=== PATIENT | female | born 1995 | race Caucasian/White ===

== ENCOUNTER 2024-03-16 09:02 | Day surgery (SDC) | payer BC, SELFPAY ==
[2024-03-16 09:18] VITALS: BMI 41.2
[2024-03-16 09:30] VITALS: BP 119/72; PULSE 77; RESP 16; TEMP 36.6; O2SAT 94
[2024-03-16] MEDS: SODIUM CHLORIDE 0.9 % (FLUSH) 10 ML SYRINGE IVF (09:32)
[2024-03-16 09:36] LABS: Ur HCG Qualitative* Negative (Negative)
--- NOTE | 2024-03-16 10:30 | CRLHL7_ITS ---
For Patients: As a result of the Century Cures Act, medical imaging exams and procedure reports are released immediately into your electronic medical record. You may view this report before your referring provider. If you have questions, please contact your health care provider. Indication: Excision Lipoma Right Foot; IPJ Fusion Right big toe Technique: Two fluoroscopic images of the right great toe. Fluoroscopic time 12.3 seconds. IMPRESSION: Fluoroscopic guidance of fusion across the great toe interphalangeal joint. Dictated by Iggy Osman MD @ 03/16/2024 2:56:54 PM (Electronically Signed)
[2024-03-16] MEDS: BUPIVACAINE 0.25% 30 ML INJECTION (11:20)
[2024-03-16] MEDS: CEFAZOLIN 2 GM INJ IVP (11:26)
--- NOTE | 2024-03-16 12:33 | W.ANESCHARGE ---
Anesthesia Charges Start Date/Time Anesthesia Start Date: 03/16/24 Anesthesia Start Time: 11:11 Stop Date/Time Anesthesia Stop Date: 03/16/24 Anesthesia Stop Time: 13:31
[2024-03-16 13:30] VITALS: BP 113/70; PULSE 63; RESP 16; TEMP 36.7; O2SAT 100
--- NOTE | 2024-03-16 13:38 | W.ANESCHARGE ---
Anesthesia Charges Start Date/Time Anesthesia Start Date: 03/16/24 Anesthesia Start Time: 11:11 Stop Date/Time Anesthesia Stop Date: 03/16/24 Anesthesia Stop Time: 13:31
[2024-03-16 13:45] VITALS: BP 134/84; PULSE 59; RESP 16; O2SAT 99
[2024-03-16 14:00] VITALS: BP 140/96; PULSE 71; RESP 16; O2SAT 100
[2024-03-16] MEDS: OxyCODONE/APAP 5-325 TABLET PO (14:08)
[2024-03-16 14:15] VITALS: BP 124/73; PULSE 71; RESP 16; O2SAT 100
[2024-03-16 14:45] VITALS: BP 128/78; PULSE 75; RESP 16; O2SAT 100
--- NOTE | 2024-03-16 15:56 | W.PODPROC_ITS ---
Date of Procedure: 03/16/24 Surgeon: Edward Jackson DPM Pre-op Diagnosis: 1. Lipoma left foot 2. Lipoma right foot 3. Rheumatoid nodule right great toe 4. Hallux extensus right 5. 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 Lipoma left foot 2. Lipoma right foot 3. Rheumatoid nodule right great toe 4. Hallux extensus right 5. 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 Excision of lipoma left foot 2. Excision of lipoma right foot 3. Excision of rheumatoid nodule right great toe 4. IPJ fusion right great toe 5. Ostectomy 5th metatarsal head right Indications: Patient has had ongoing issues with mass formations and great toe pain. She had previous surgery on the right foot and now has continued pain in the area of the cyst were there is a a moderate condyle. She has elected to have surgical treatment. I reviewed the procedure, recovery, expectations and potential comp lications. These include but not limited to: Poor wound healing, infection, under correction, over correction, nonunion, malunion, delayed union, continued pain, hardware irritation, nerve injury, potentially future surgery, recurrence, deep venous thrombosis, pulmonary embolism and possible . She understands risks written consent was obtained. Site marked. Procedure Description: Patient brought the operating room placed supine position on operating table to time IV sedation was initiated. 20 mL of 0.25% Marcaine plain was injected into the left foot and 40 mL of 0.25% Marcaine plain was injected into the right foot. She was prepped and draped in a sterile fashion. Standard time-out protocol followed. Procedure 1: Left foot was exsanguinated the tourniquet inflated. A oblique linear incision was made over the lipomatous mass in the area of the sinus tarsi. The incision was carried down through skin subcutaneous tissues. Mass was identified and its margins identified. On the superior medial aspect the sensory nerve was identified and its branches was carefully dissected free of the mass mass was then peeled away from the deep fascia and removed in total. This sent to pathology. Mass is greater than 1.5 cm. Wound was irrigated normal sterile saline. Tourniquet was released and active bleeding noted. Incision closed with 3-0 nylon. Sterile bolstered dressing was applied. Procedure 2: Right foot was exsanguinated the tourniquet inflated. A oblique linear incision was made over the lipomatous mass in the area of the sinus tarsi. The incision was carried down through skin subcutaneous tissues. Mass was identified and its margins identified. mass was then peeled away from the deep fascia and removed in total. This sent to pathology. Mass is greater than 1.5 cm Wound was irrigated normal sterile saline. Tourniquet was released and active bleeding noted. Incision closed with 3-0 nylon. Sterile bolstered dressing was applied. Procedure 3: Linear incisions made on the plantar aspect of the IPJ in the right great toe. Incision was carried down through skin subcutaneous tissues. Blunt dissection was carried down to the firm nodular mass. Mass was easily identified and excised and sent to pathology in formalin. Mass measured approximately 1 cm. Wound was irrigated normal sterile saline. Incision closed with 3-0 nylon. Procedure 4: Linear incision was made along the dorsal medial proximal phalanx and once just distal to the IPJ the incision angled transversely lateral making the shape of a reverse L. incision was carried down through skin subcutaneous tissues. Skin and subcutaneous tissues were elevated as a flap leaving the extensor tendon in place. Linear incision was then made along the periosteum and joint capsule on the dorsal medial aspect. Portion of the extensor tendon was carefully reflected laterally. The tendon was undermined and the joint completely exposed. Using a sagittal saw the a articular surface of the head of the proximal phalanx was resected and the base of the distal phalanx resected. Great care was taken to avoid damage to the flexor and extensor tendons. A sesamoid bone was noted within the flexor and this was excised without damage to the flexor tendon. Area was irrigated normal sterile saline. Opposing surfaces were fenestrated. A guide pin was placed through the base of the proximal phalanx and out through the tip of the toe. A guide pin was then retrogradely drilled across the fusion site into the proximal phalanx. C-arm confirmed excellent position. Stab incision made in the tip of the toe and a 4.0 partially-threaded cannulated screw inserted using standard technique. Excellent compression noted across the fusion site. Excellent stability. I did not feel I could adequately get a 2nd point of fixation in place without damaging the tendon were additional incisions. Wound was irrigated normal sterile saline. The extensor tendon repaired with 3-0 Vicryl. Subcutaneous tissues reapproximated 4-0 Monocryl and skin closed with 4-0 nylon. Procedure 5: Linear incision was made over the dorsal lateral aspect of the 5th metatarsal head through the old scar. Incision was carried down through skin subcutaneous tissues. A capsular and periosteal incision was made in linear fashion and reflected away from the head of the 5th metatarsal. The prominent condyle was easily identified and using a rotary bur the condyle and head of the 5th metatarsal were remodeled appropriately. Wound was thoroughly irrigated normal sterile saline. C-arm images confirmed excellent appearance. Capsular tissue was repaired with 4-0 Vicryl. Subcutaneous tissues reapproximated 4-0 Monocryl and skin closed with 4-0 nylon. Sterile dressing was then applied. Tourniquet was released. Patient is placed in a well-padded cam boot on the right. On the left she can wear her Crocs. She is given oxycodone for pain. She is full weight-bearing. Crutch assistance. Follow-up in 2 days. Both written and verbal postop instructions given. Anesthesia: MAC and local Hemostasis: ankle Estimated blood loss (mL): 10 Implants: Arthrex 4.0 cannulated screw x1 Specimens: specimen obtained, sent to pathology (3 specimen sent to pathology) Disposition: same day
== END 2024-03-16 15:30 | disposition home or self-care (01) ==
LOC: OR 09:08
PROVIDERS: Anesthesiology; PCP Internal Medicine; Visit Provider Podiatrist
PROC: (CPT 28039; principal; 2024-03-16 10:30)
DX: D17.23 Benign lipomatous neoplasm of skin and subcutaneous tissue of right leg (principal); D17.24 Benign lipomatous neoplasm of skin and subcutaneous tissue of left leg; M06.371 Rheumatoid nodule, right ankle and foot; M20.5X1 Other deformities of toe(s) (acquired), right foot; M25.774 Osteophyte, right foot
CPT/HCPCS: 28039 ×2; 28043; 28755; 28113; 01480; 73620; 76000; 81025; 88304; 88305; A9270; C1713; J0665; J0690; J2250; J2704; J3010